=== PATIENT | male | born 1965 | race Caucasian/White ===

== ENCOUNTER → 2019-07-18 13:24 | Outpatient (CLI) | payer OTHER, SELFPAY ==
--- NOTE | 2019-07-18 | DI.RAD.S_ITS ---
PROCEDURE: XR WRIST LT MIN 3V INDICATIONS: LEFT WRIST PAIN TECHNIQUE: 4 views of the wrist were acquired. COMPARISON: None. FINDINGS: Bones: No fractures or dislocations. No suspicious bony lesions. Scaphoid view: Scaphoid appears intact. Soft tissues: No suspicious soft tissue calcifications. IMPRESSION: No acute osseous abnormality. Dictated by: Km Barney M.D. on 07/18/2019 at 17:43 Approved by: Km Barney M.D. on 07/18/2019 at 17:44
== END ==
PROVIDERS: Family Provider Family Medicine; PCP Family Medicine; Visit Provider Family Medicine
DX: M25.532 Pain in left wrist (principal)
CPT/HCPCS: 73110

== ENCOUNTER → 2021-09-06 16:42 | Outpatient (CLI) | payer OTHER, SELFPAY ==
--- NOTE | 2021-09-06 16:46 | DI.RAD.S_ITS ---
PROCEDURE: XR KNEE RT 3V INDICATIONS: RIGHT KNEE PAIN TECHNIQUE: 3 views of the knee were acquired. COMPARISON: None. FINDINGS: Bones: No acute fracture identified. Small right knee effusion. No definite joint space narrowing. Soft tissues: Mild anterior soft tissue swelling. IMPRESSION: No acute findings. Small right knee effusion and mild anterior soft tissue swelling. If the patient's pain or other symptoms persist, consider further evaluation with MRI Dictated by: Lb Washington M.D. on 09/07/2021 at 8:41 Approved by: Lb Washington M.D. on 09/07/2021 at 8:42
--- NOTE | 2021-10-13 12:59 | PC.NURSE ---
[facility] pharmacy called for clarification of prescriptions. Phone call given to Radha Christina.
== END ==
PROVIDERS: Family Provider Family Medicine; PCP Family Medicine; Referring Provider Family Medicine; Visit Provider Family Medicine
DX: M25.561 Pain in right knee (principal); M79.89 Other specified soft tissue disorders
CPT/HCPCS: 73562

== ENCOUNTER → 2021-11-05 08:25 | Outpatient (CLI) | payer OTHER, SELFPAY ==
--- NOTE | 2021-11-05 | DI.MRI.S_ITS ---
PROCEDURE: MR KNEE RT WO CON INDICATIONS: RIGHT KNEE PAIN. TECHNIQUE: Noncontrast sagittal PD fast spin echo and T2 fast spin echo with fat saturation, sagittal 3-D FLASH with fat saturation; coronal T1 spin echo and PD fast spin echo with fat saturation, and axial PD fast spin echo with fat saturation through the knee. COMPARISON: [facility], CR, XR KNEE RT 3V, 09/06/2021, 16:43. FINDINGS: Image quality: Excellent. Menisci: A there is a horizontal oblique tear at the junction of the posterior horn and body of the medial meniscus extending to the inner third of the femoral articular surface. Mild intrasubstance degeneration is seen in the body of the lateral meniscus. There is linear hyperintense signal extending close to the middle third of the femoral articular surface at the junction of the anterior horn and body of the lateral meniscus , which is suspicious for a horizontal oblique tear. Cruciate ligaments: The anterior and posterior cruciate ligaments appear intact. Medial structures: The medial collateral ligament appears intact. The semimembranosus tendon insertions and meniscocapsular junction appear intact. Visualized portions of the pes anserinus tendons appear normal. No abnormal bursal fluid. Lateral structures: The lateral collateral ligament, long and short heads of the biceps femoris tendon appear intact. The popliteus tendon demonstrates mild insertional tendinosis. No signs of posterolateral corner injury. Iliotibial band appears normal. Anterior structures: There is mild patellar tendinosis. The distal quadriceps tendon is intact. No femoral trochlear dysplasia or ventral trochlear prominence. No edema in the infrapatellar fat pad. Bones and cartilage: Mild edema at the medial central weight-bearing portion of the medial femoral condyle may be reactive to the adjacent meniscal tear or secondary to trabecular bone injury. The remaining osseous structures are intact. Focal deep cartilage fissuring is seen in the medial patellar facet. The articular cartilages are otherwise grossly intact. Joint space: There is a moderate joint effusion. The suprapatellar plica appears mildly thickened, which is nonspecific. No loculated joint fluid is seen. The medial patellar plica is intact and the infrapatellar plica also appears normal. There is a trace medial popliteal cyst. A small amount of fluid is seen tracking along the popliteus tendon sheath. A small amount of prepatellar bursal fluid is seen. IMPRESSION: 1. Horizontal oblique tear of the medial meniscus at the junction of the posterior horn and body extending to the inner third of the femoral articular surface. 2. Linear hyperintense signal in the lateral meniscus at the junction of the anterior horn and body extending towards the middle third of the femoral articular surface without definite communication visualized, which is suspicious for an underlying horizontal oblique tear. 3. Mild osseous edema in the central weight-bearing portion of the medial femoral condyle medially may be reactive to the adjacent meniscal tear versus secondary to an osseous contusion. 4. Intact cruciate and collateral ligaments. 5. Mild patellar tendinosis. 6. Moderate joint effusion. Small prepatellar bursal effusion. Dictated by: Romeo Burdick M.D. on 11/05/2021 at 10:10 Approved by: Romeo Burdick M.D. on 11/05/2021 at 10:26
== END ==
PROVIDERS: Family Provider Family Medicine; PCP Family Medicine; Referring Provider Family Medicine; Visit Provider Family Medicine
DX: S83.241A Other tear of medial meniscus, current injury, right knee, initial encounter (principal); M25.461 Effusion, right knee
CPT/HCPCS: 73721

== ENCOUNTER → 2021-12-06 09:03 | Outpatient (CLI) | payer OTHER, SELFPAY ==
[2021-12-06 10:24] LABS: COVID19 -Nasal RAPID Negative (Negative)
== END ==
PROVIDERS: Family Provider Family Medicine; PCP Family Medicine; Visit Provider Surgery
DX: Z01.812 Encounter for preprocedural laboratory examination (principal); Z20.822 Contact with and (suspected) exposure to COVID-19
CPT/HCPCS: 87635; C9803

== ENCOUNTER 2021-12-07 06:36 | Day surgery (SDC) | payer OTHER, SELFPAY ==
[2021-12-07 07:06] VITALS: BP 147/80; PULSE 65; RESP 65; TEMP 36.2; O2SAT 98
[2021-12-07] MEDS: LACTATED RINGERS 1,000 ML 200 ML IV (07:10)
[2021-12-07 07:15] VITALS: BMI 26.4
--- NOTE | 2021-12-07 07:43 | PM.HP.1 ---
History of Present Illness History of Present Illness Date Patient Seen: 12/07/21 Time Patient Seen: 07:43 Chief complaint: PRC Narrative: The patient presents for colorectal sreening. Personal history of colonic polyps. Most recent colonoscopy years ago which was normal. He reports occasional bright red blood per rectum and constipation which he attributes to hemorrhoidal disease. No personal or family history of colon cancer. On further history denies any other recent gastrointestinal symptoms. No nausea, vomiting, abdominal pain, loss of appetite, unexplained weight loss, change in bowel habits, diarrhea. Patient History Medical History Anxiety HTN (hypertension) Hypercholesteremia Tear meniscus knee Vestibular neuronitis Family & Social History Social History: household members spouse Tobacco & Substance use: Smoking Status Never smoker alcohol intake current alcohol intake frequency holiday/special occasion Substance Use Type does not use Meds Home Medications and Allergies Home Medications Medication Instructions Recorded Confirmed Type atenolol 25 mg tablet 25 mg PO DAILY 08/09/19 12/07/21 History multivitamin 1 tab PO DAILY 08/09/19 12/07/21 History sumatriptan succinate 50 mg tablet 50 mg PO ONCE PRN 08/09/19 12/07/21 History (Imitrex) testosterone cypionate 200 mg/mL 200 mg IM Q2W ml 08/09/19 12/07/21 History intramuscular oil venlafaxine 75 mg capsule,extended 75 mg PO QAM #90 cap 08/10/21 12/07/21 Rx release 24 hr sodium,potassium,mag sulfates 17.5 See Rx Instructions PO .COMPLEX 11/04/21 12/07/21 Rx gram-3.13 gram-1.6 gram oral soln #354 ml (Suprep Bowel Prep Kit) Allergies Allergy/AdvReac Type Severity Reaction Status Date / Time latex Allergy Mild rash Verified 12/07/21 07:34 Exam Vital Signs (past 8 hours): - 12/07/21 07:06 Temperature 97.2 F L Pulse Rate 65 Respiratory Rate 65 H Blood Pressure 147/80 H Pulse Oximetry 98 Oxygen Delivery Method Room Air Narrative Exam Narrative: GENERAL: Adult male in no apparent distress HEENT: No scleral icterus CV: Regular rate, no peripheral edema LUNGS: No increased work of breathing. Patient speaks in full sentences without oxygen support. ABDOMEN: Soft, non-tender, non-distended NEURO: Nonfocal, normal strength throughout. SKIN: Warm and dry Assessment & Plan Assessment and plan (1) Screening for colon cancer: Status: Acute Assessment & Plan narrative: The patient requires colorectal screening and colonoscopy is recommended, possible hemorrhoidal banding. Technical details were discussed. Risks, benefits, alternatives explained. Risks including but not limited to myocardial infarction, aspiration, bleeding, pain, missed lesion, incomplete examination, need for further radiographic studies, colonic perforation, and need for major abdominal surgery were discussed. All questions were answered to their satisfaction, and they are in agreement with this plan. Time Spent With Patient Critical Care time: I spent a total of [] minutes of critical care time on this patient's care today; this time is exclusive of procedural time.
[2021-12-07] MEDS: fentaNYL 250 MCG/5 ML INJ IV (07:49)
[2021-12-07] MEDS: MIDAZOLAM 5 MG/5 ML VIAL IV (07:49)
--- NOTE | 2021-12-07 08:03 | SUR.OPER ---
GLASSES TO PACU WITH PATIENT IN LABELED BAG.
--- NOTE | 2021-12-07 08:14 | PM.OP.COLON ---
Operative Date/Time/Diagnoses Date of procedure: 12/07/21 Time of procedure: 08:14 Pre-op diagnosis: Screening colonoscopy Post-op diagnosis: same Procedure & Clinicians Study performed: Colonoscopy Same procedure as scheduled: Yes Indications: Screening. Personal history of colonic polyps Surgeon: Kong Marie Procedure Notes Procedure in detail: Medications: Conscious sedation using 8 mg IV midazolam and 150 mcg IV of fentanyl The history and physical was performed/updated and the patient is ASA class is 2. The procedure was discussed in detail with the patient. Potential risks complications including infection, bleeding, missed diagnosis, perforation, need for surgery, and were explained. Their questions were answered and informed consent was obtained. Patient was brought to the procedure room and placed standard monitoring equipment. The patient's vital signs were monitored continuously throughout the entire procedure. Prior to starting time-out was performed. The patient was placed in the left lateral recumbent position. Procedural sedation was administered. Examination began with a thorough inspection of the perianal area there was no evidence of fissures, fistulae, external hemorrhoids or cutaneous malignancy. The colonoscopy scope was then placed into the anal canal and was advanced to the cecum, which was identified by the ileocecal valve, the appendiceal orifice and the confluence of the taenia. The scope was then slowly withdrawn examining colon thoroughly in all directions, irrigating it of any residual stool. FINDINGS 1. No colonic masses or polyps 2. Grade 1 internal hemorrhoids mildly inflamed. Previous hemorrhoidal banding site scar observed. No active bleeding 3. Normal healthy colon The patient tolerated the procedure well. They will be discharged once criteria are met. The prep was of good/excellent quality. The withdrawl time was 6 minutes. The sedation time was 18 minutes. Specimen(s): none sent Impression: Normal colonoscopy Post-procedure Recommendations: Colonoscopy in 10 years Disposition: same day surgery
[2021-12-07 08:18] VITALS: BP 122/77; PULSE 80; RESP 20; TEMP 36.1; O2SAT 97
[2021-12-07 08:23] VITALS: BP 137/87; PULSE 71; RESP 14; O2SAT 98
[2021-12-07 08:28] VITALS: BP 149/86; PULSE 75; RESP 12; O2SAT 96
[2021-12-07 08:35] VITALS: BP 135/87; PULSE 71; RESP 11; TEMP 36.1; O2SAT 95
[2021-12-07 08:40] VITALS: BP 138/76; PULSE 67; RESP 15; O2SAT 98
== END 2021-12-07 08:50 | disposition home or self-care (01) ==
PROVIDERS: Family Provider Family Medicine; PCP Family Medicine; Referring Provider Surgery; Visit Provider Surgery
PROC: 0DJD8ZZ Inspection of Lower Intestinal Tract, Via Natural or Artificial Opening Endoscopic (ICD-10-PCS; CPT 45378; principal; 2021-12-07 07:45)
DX: Z12.11 Encounter for screening for malignant neoplasm of colon (principal); Z86.010 Personal history of colon polyps; I10 Essential (primary) hypertension; F41.9 Anxiety disorder, unspecified; E78.00 Pure hypercholesterolemia, unspecified; K64.0 First degree hemorrhoids
CPT/HCPCS: 45378; 99152; J2250; J3010

== ENCOUNTER → 2022-07-21 15:40 | Outpatient (CLI) | payer OTHER, SELFPAY ==
--- NOTE | 2022-07-21 | DI.MRI.S_ITS ---
PROCEDURE: MR KNEE RT WO CON INDICATIONS: Complex tear of medial meniscus, current injury, right knee, TECHNIQUE: Noncontrast sagittal PD fast spin echo and T2 fast spin echo with fat saturation, sagittal 3-D FLASH with fat saturation; coronal T1 spin echo and PD fast spin echo with fat saturation, and axial PD fast spin echo with fat saturation through the knee. COMPARISON: [facility], MR, MR KNEE RT WO CON, 11/05/2021, 8:37. FINDINGS: Image quality: Excellent. Anterior Cruciate Ligament: Intact. Posterior Cruciate Ligament: Intact. Medial Collateral Ligament: Intact. Lateral Collateral Ligament: Intact. Medial Meniscus: There is mild truncation of the inner margin of the medial meniscus that may be secondary to an interval partial meniscectomy. Heterogeneous signal is seen at the junction of the posterior horn and body of the medial meniscus that is less specific in the postsurgical setting and may represent fibrovascular granulation tissue or residual or recurrent tearing. No definite uptake of intra-articular contrast material is seen. Possible small centrally displaced flap tear at the posterior root attachment of the medial meniscus. Lateral Meniscus: Linear signal within the body of the lateral meniscus approaching the femoral articular surface does not appear significantly changed when compared to the MRI from 11/05/2021. Medial and Lateral Tendons: The semimembranosus tendon insertions and meniscocapsular junction appear intact. Visualized portions of the pes anserinus tendons appear normal. No abnormal bursal fluid. The long and short heads of the biceps femoris tendon appear intact. The popliteus tendon appears intact. No signs of posterolateral corner injury. Iliotibial band appears normal. Anterior Structures: Mild patellar tendinosis. The distal quadriceps tendon is intact. No patellar subluxation. No femoral trochlear dysplasia or ventral trochlear prominence. No edema in the infrapatellar fat pad. Bones: Mild osseous edema within the medial femoral condyle and medial tibial plateau may be reactive to the adjacent meniscal tear and surgery versus secondary to overlying cartilage loss or osseous contusions. Focal osseous edema is seen at the anterior aspect of the lateral tibial plateau that is suspicious for a recent contusion. Medial Femorotibial Cartilage: Generalized high-grade partial-thickness cartilage loss and possibly full-thickness cartilage loss throughout the weight-bearing portion of the medial femorotibial compartment, which appears to have progressed when compared to the MRI from 11/05/2021. Lateral Femorotibial Cartilage: Partial-thickness cartilage irregularity is seen at the central portion of the lateral tibial plateau and lateral femoral condyle. Patellofemoral Cartilage: Deep cartilage fissuring is seen in the medial patellar facet, which does not appear significantly changed. Soft Tissues: There is a moderate joint effusion. Suprapatellar plica partial resection is noted. There is subcutaneous prepatellar soft tissue edema and thickening. Small amount of fluid is seen tracking along the popliteus tendon sheath. No significant medial popliteal cyst. The musculature surrounding the knee is normal in bulk. IMPRESSION: 1. Postsurgical changes from interval partial medial meniscectomy. Heterogeneous intermediate signal intensity at the junction of the posterior horn and body is nonspecific in the postsurgical setting and may be related to fibrovascular granulation tissue versus residual or recurrent meniscal tearing. There is a possible small centrally displaced flap tear at the posterior root attachment. 2. Horizontal hyperintense signal in the body of the lateral meniscus approaching the femoral articular surface and free edge margin does not appear significantly changed. 3. Progressive grade 3-4 chondromalacia in the weight-bearing portion of the medial femorotibial compartment. Mild surrounding osseous edema may be related to overlying cartilage loss versus reactive to the adjacent meniscal surgery/meniscal tear, or secondary to an osseous contusion. 4. Focal osseous edema at the anterior aspect of the lateral tibial plateau suspicious for an osseous contusion. 5. Mild patellar tendinosis. 6. Moderate joint effusion. Dictated by: Romeo Burdick M.D. on 07/21/2022 at 17:00 Approved by: Romeo Burdick M.D. on 07/21/2022 at 17:10
== END ==
PROVIDERS: Family Provider Family Medicine; PCP Family Medicine; Referring Provider Orthopaedic Surgery; Visit Provider Orthopaedic Surgery
DX: S83.231A Complex tear of medial meniscus, current injury, right knee, initial encounter (principal); M94.261 Chondromalacia, right knee; Z98.890 Other specified postprocedural states
CPT/HCPCS: 73721

== ENCOUNTER → 2023-07-07 09:13 | Outpatient (CLI) | payer OTHER, SELFPAY ==
--- NOTE | 2023-07-07 | DI.RAD.S_ITS ---
PROCEDURE: XR SHOULDER RT MIN 2V INDICATIONS: CHRONIC RIGHT SHOULDER PAIN TECHNIQUE: 3 views of the shoulder were acquired. COMPARISON: None. FINDINGS: Bones: No fractures or dislocations. Mild degenerative changes. No suspicious bony lesions. Visualized ribs appear intact. Soft tissues: No suspicious soft tissue calcifications. IMPRESSION: Mild degenerative changes. No acute abnormality. Dictated by: Sourav Forrest M.D. on 07/07/2023 at 10:46 Approved by: Sourav Forrest M.D. on 07/07/2023 at 10:57
== END ==
PROVIDERS: Family Provider Family Medicine; PCP Family Medicine; Referring Provider Family Medicine; Visit Provider Family Medicine
DX: M25.511 Pain in right shoulder (principal); G89.29 Other chronic pain
CPT/HCPCS: 73030

== ENCOUNTER → 2023-07-14 15:16 | Outpatient (CLI) | payer OTHER, SELFPAY ==
--- NOTE | 2023-07-14 | DI.MRI.S_ITS ---
PROCEDURE: MR SHOULDER RT WO CON INDICATIONS: chronic right shoulder pain TECHNIQUE: Noncontrast oblique coronal T2 fast spin echo with fat saturation, oblique sagittal T1 spin echo and T2 fast spin echo with fat saturation, axial T1 spin echo and T2 fast spin echo with fat saturation through the shoulder. COMPARISON: None. FINDINGS: Image quality: Excellent. Rotator cuff: There is full-thickness rupture of mid to posterior fibers of distal supraspinatus at its insertion on the humeral head with up to 1.6 cm medial retraction of torn tendon fibers to the level of acromion. Low-grade articular surface partial-thickness tear involving rest of the supraspinatus is seen. Distal infraspinatus tendinosis is noted. Low-grade intrasubstance partial-thickness tear involving distal subscapularis is seen. Sagittal images demonstrate very mild supraspinatus muscle atrophy. Bones and bursae: No bone marrow contusions or fractures. Moderate acromioclavicular joint osteoarthritic changes are seen with joint space narrowing, subchondral sclerosis and downward osteophyte formation depressing the musculotendinous junction of supraspinatus. Moderate amount of subacromial subdeltoid bursal fluid is seen. No gross intra-articular loose bodies. Capsule and soft tissues: There is signal abnormality and contour irregularity involving superior anterior labrum at 12 to 2 o'clock position suggestive of superior anterior labral tear. The long head of the biceps tendon demonstrates normal location and morphology. The rotator interval appears normal, without fibrosis. The coracohumeral ligament is normal in thickness. IMPRESSION: 1. Low-grade articular surface partial-thickness tear involving supraspinatus with full-thickness rupture involving mid to posterior fibers of distal supraspinatus at its insertion on the humeral head and up to 1.6 cm medial retraction of torn tendon fibers to the level of acromion. Very mild supraspinatus muscle atrophy. 2. Distal infraspinatus tendinosis. Low-grade intrasubstance partial-thickness tear involving distal subscapularis. 3. Moderate acromioclavicular joint osteoarthritis. Moderate amount of subacromial subdeltoid bursal fluid. No gross loose bodies. 4. Suggestion of superior anterior labral tear at 12 to 2 o'clock position. Dictated by: Prabhjot Friend M.D. on 07/17/2023 at 11:30 Approved by: Prabhjot Friend M.D. on 07/17/2023 at 11:35
== END ==
PROVIDERS: Family Provider Family Medicine; PCP Family Medicine; Referring Provider Family Medicine; Visit Provider Family Medicine
DX: M75.111 Incomplete rotator cuff tear or rupture of right shoulder, not specified as traumatic (principal); M19.011 Primary osteoarthritis, right shoulder; M25.511 Pain in right shoulder; G89.29 Other chronic pain
CPT/HCPCS: 73221

== ENCOUNTER → 2025-01-14 15:05 | Outpatient (CLI) | payer OTHER, SELFPAY ==
--- NOTE | 2025-01-14 15:07 | DI.CT.S_ITS ---
PROCEDURE: CT SINUS SCREEN WO CON INDICATIONS: SINUSITIS,CHRONIC/RECURRENT/CHRONIC RHINOSINUSITIS TECHNIQUE: Noncontrast 3.0 mm axial images acquired from the frontal sinuses to the mid-sella, with coronal and sagittal reformats. For radiation dose reduction, the following was used: automated exposure control, adjustment of mA and/or kV according to patient size. COMPARISON: None. FINDINGS: Image quality: Excellent. Maxillary Sinuses: Mucosal debris and thickening noted involving both maxillary sinuses, right greater than left. No osseous remodeling. Bilateral small Shaunna cells. Left ostiomeatal unit is obstructed. Right ostiomeatal unit patent. Ethmoid Air Cells: No bony remodeling or destruction. Sinuses are clear. Sphenoid Sinuses: No bony remodeling or destruction. Sinuses are clear. Frontal Sinuses: No bony remodeling or destruction. Sinuses are clear. Ostiomeatal Complexes: Ostiomeatal complexes are patent. No Shaunna cells. Miscellaneous: Visualized intra-orbital contents are normal. No kaylee bullosa or paradoxical turbinate curvature. No nasal septal deviation. IMPRESSION: Bilateral maxillary mucosal sinus disease associated with Shaunna cells and left ostiomeatal unit obstruction Approved by: Thiago Weaver M.D. on 01/14/2025 at 16:01
== END ==
PROVIDERS: Family Provider Family Medicine; PCP Family Medicine; Referring Provider Otolaryngology; Visit Provider Otolaryngology
DX: J32.4 Chronic pansinusitis (principal); J34.89 Other specified disorders of nose and nasal sinuses; J34.3 Hypertrophy of nasal turbinates
CPT/HCPCS: 70486

== ENCOUNTER 2025-05-01 12:05 | Day surgery (SDC) | payer OTHER, SELFPAY ==
[2025-04-24 12:48] VITALS: BMI 29.4
[2025-05-01 13:10] VITALS: BP 148/80; PULSE 67; RESP 16; TEMP 36.7; O2SAT 99; BMI 27.0
[2025-05-01] MEDS: OXYMETAZOLINE NASAL SPRAY 30 ML 2 SPRAYS NASAL ×2 (13:31→15:24)
[2025-05-01] MEDS: LACTATED RINGERS 1,000 ML 84 ML IV (13:31)
[2025-05-01] MEDS: ACETAMINOPHEN 325 MG TABLET 975 MG PO (13:31)
--- NOTE | 2025-05-01 14:39 | PM.PREOP ---
Pre-operative Note Interval Note History & Physical reviewed/Exam performed by Physician: Yes Changes to H&P: No
--- NOTE | 2025-05-01 14:40 | PM.HP.1 ---
History of Present Illness History of Present Illness Date Patient Seen: 05/01/25 Time Patient Seen: 14:40 Chief complaint: SDC Narrative: 59-year-old male last seen in clinic 01/28 presents for scheduled bilateral inferior turbinate reduction via submucous resection. He began tirzepatide possibly 5 weeks ago some initial nausea but otherwise doing well, has lost 20 lb. Last dose yesterday. Very small dinner at 9:00 p.m. with a few small stones possibly 1 by each. Nothing since. He feels hungry. We discussed in detail the increased risk of aspiration with that medication typically held 7 days prior to the procedure or at least clear liquids for 24 hours prior. We reviewed the increased risk of aspiration pneumonia and all its sequelae and he is choosing to proceed. [facility] Medical History Tear meniscus knee Hypercholesteremia HTN (hypertension) Vestibular neuronitis Anxiety Surgical History Hx of vasectomy (2002) Hx of tonsillectomy (1975) Hx of repair of rotator cuff (2022) Hx of adenoidectomy (1975) Social History household members: spouse Smoking Status: Never smoker alcohol intake: current Meds Home Medications and Allergies Home Medications ?Medication ?Instructions ?Recorded ?Confirmed ?Type atenolol 25 mg tablet 25 mg PO DAILY 08/09/19 05/01/25 History multivitamin 1 tab PO DAILY 08/09/19 06/20/22 History sumatriptan succinate 50 mg tablet 50 mg PO ONCE PRN migraine headache 08/09/19 05/01/25 History (Imitrex) testosterone cypionate 200 mg/mL 200 mg IM Q2W 08/09/19 05/01/25 History intramuscular oil trazodone 50 mg tablet 50 mg PO ONCE PM 04/24/25 05/01/25 History tirzepatide (weight loss) 5 mg/0.5 5 mg SUBCUT QWEEK 05/01/25 05/01/25 History mL subcutaneous solution (Zepbound) Allergies Allergy/AdvReac Type Severity Reaction Status Date / Time latex Allergy Mild rash Verified 05/01/25 13:06 lisinopril Allergy Verified 05/01/25 13:06 Review of Systems Review of Systems Narrative: Negative except as listed in the HPI Exam Vital Signs (past 8 hours): - 05/01/25 13:10 Temperature 98.0 F Pulse Rate 67 Respiratory Rate 16 Blood Pressure 148/80 H Pulse Oximetry 99 Oxygen Delivery Method Room Air Oxygen Delivery Method Room Air Narrative Exam Narrative: Well-developed well-nourished, heart regular rate and rhythm without murmur, lungs clear to auscultation bilaterally Assessment & Plan Assessment & Plan narrative: Assessment: Nasal airway obstruction, inferior turbinate hypertrophy, septal deviation, chronic rhinitis, chronic rhinosinusitis Plan: Following discussion of the material risks benefits complications and alternatives, the patient elected to proceed. We specifically discussed the increased risk of aspiration pneumonia due to the GLP 1 inhibitor and he understands fully and still wishes to proceed. Time-Based Coding :: [TOTAL MINUTES] spent with patient and on the chart (including review of chart, obtaining history, exam, reviewing outside data, placing orders, documenting exam and treatment plan, and counseling patient) on [DATE].
--- NOTE | 2025-05-01 14:43 | PM.OP.1 ---
Operative Date/Time/Diagnoses Date of procedure: 05/01/25 Time of procedure: 15:34 Pre-op diagnosis: Nasal airway obstruction, inferior turbinate hypertrophy, septal deviation, chronic rhinitis, chronic rhinosinusitis Post-op diagnosis: same Procedure & Clinicians Procedure: Bilateral inferior turbinate reduction via submucous resection Same procedure(s) as scheduled: Yes Indications: 59 Year old with the above diagnoses incompletely managed with medical therapy presents for the above procedure. Following discussion of the material risks benefits complications and alternatives, the patient elected to proceed. Surgeon: iRcardo Bonilla Click Yes if Unassisted: Yes Anesthesia Type: General and Local Operative Notes Findings: 2 to 3+ turbinate hypertrophy, [id number], 1 to 2+ right anterior septal deviation Applied: none Estimated Blood Loss (mL): 10 Procedure in detail: Following identification and confirmation of consent as well as preoperative Afrin nasal spray, the patient was brought to the operating room suite and placed in the supine position. General laryngeal mask anesthesia was administered. I infiltrated the turbinates widely bilaterally with 2% lidocaine 1 100,000 epinephrine followed by temporary packing with cotton with Afrin and 4% lidocaine. Following sterile prep and drape, the packing was removed and a 15 blade was used to incise a vertical incision to the anterior portion of the head of the right inferior turbinate. I submucosally dissected a portion of the inferior turbinate bone and resected it, along with some submucous tissue. A 25 gauge spinal needle was used to impale the length of the turbinate, with cautery on a setting of 15 activated on slow withdrawal over 2 passes. The turbinate was then outfractured. This process was repeated on the opposite side. A Merocel sponge was placed bilaterally over the head of each turbinate and soaked with Afrin. The procedure completed, sponge and needle counts were correct and the patient was extubated in the operating room and taken to recovery room in stable condition without known complication. Complications: none Post-operative Condition: stable Disposition: same day surgery Plan for aftercare: Keep the Merocel sponges moist, remove this evening before bed after soaking with Afrin 30 minutes prior. Then use Afrin for bleeding only, coat the nostrils at all times with Polysporin or bacitracin, use nasal saline spray throughout the day. No heavy lifting for 2 full weeks. Tylenol and Advil for baseline pain control, possibly oxycodone for breakthrough pain.
--- NOTE | 2025-05-01 15:18 | SUR.OPER ---
Supine on padded OR bed, head on pillow, left arms padded and tucked at side,right arm on padded armboard at less than 90degrees abduction legs uncrossed, safety belt at thigh, tape over blanket over lower legs .
[2025-05-01] MEDS: LIDOCAINE 1% W/EPI 10ML 20 ML INJ (15:23)
[2025-05-01] MEDS: BACITRACIN 28 GM OINT 1 APPLIC TOP (15:25)
[2025-05-01] MEDS: LIDOCAINE 4% SOLN 50 ML 20 ML TOP (15:26)
[2025-05-01 15:47] VITALS: BP 146/74; PULSE 85; RESP 20; TEMP 36.1; O2SAT 99
[2025-05-01] MEDS: OXYCODONE IR 5 MG TABLET PO (16:00)
[2025-05-01 16:01] VITALS: BP 150/91; PULSE 70; RESP 15; TEMP 36.2; O2SAT 98
[2025-05-01 16:07] VITALS: BP 155/88; PULSE 68; RESP 15; TEMP 36.2; O2SAT 98
[2025-05-01] MEDS: KETOROLAC 30 MG/ML VIAL 15 MG IV (16:25)
== END 2025-05-01 16:36 | disposition home or self-care (01) ==
PROVIDERS: Family Provider Family Medicine; PCP Family Medicine; Referring Provider Otolaryngology; Visit Provider Otolaryngology
PROC: (CPT 30140; principal; 2025-05-01 13:30)
DX: J34.3 Hypertrophy of nasal turbinates (principal); J34.89 Other specified disorders of nose and nasal sinuses; J98.8 Other specified respiratory disorders; J34.2 Deviated nasal septum; J32.8 Other chronic sinusitis
CPT/HCPCS: 30140; J1885; J2704; J3010